=== PATIENT | female | born 1985 | race Caucasian/White ===

== ENCOUNTER 2018-09-09 11:19 | Emergency (ER) | payer SELFPAY ==
[2018-09-09 11:27] VITALS: BP 129/79; PULSE 94; TEMP 98.2; BMI 25.7
--- NOTE | 2018-09-09 11:46 | PDOC ---
History of Present Illness - General Chief Complaint: Injury Stated Complaint: LEFT ANKLE INJURY Time Seen by Provider: 09/09/18 11:26 - History of Present Illness Initial Comments: 09/09/18 13:52 Chief complaint: Pain and swelling left ankle History of present illness: Twisted left ankle yesterday. Pain and swelling. Ambulating but with moderate limp. Review of systems: Denies any other injuries including pain or injuries to the head neck chest abdomen spine and pelvis other extremities, or proximal/distal left lower extremity Past medical history: Healthy female, no active medical or surgical problems Social/family history reviewed and noncontributory Physical exam: Alert and oriented well-developed well-nourished no acute distress cooperative Afebrile, vital signs normal Physical exam is completely normal except for the left ankle, which shows no deformity or instability, but moderate swelling of the lateral ankle ligaments. Point tenderness over the lateral malleolus. No tenderness or swelling of the fifth metatarsal base. Pulses full. No distal sensory or motor deficits. Impression: Grade 2 sprain, rule out fracture Plan: X-rays negative for fracture. Jr wrap and crutches applied. Encouraged early partial weightbearing and follow-up orthopedist in one week if pain and swelling persists. Adequate ambulatory at discharge to follow-up as directed Past History - Past Medical History Allergies/Adverse Reactions: Allergies Allergy/AdvReac Type Severity Reaction Status Date / Time No Known Allergies Allergy Verified 09/09/18 11:22 Home Medications: Ambulatory Orders NK [No Known Home Medication] 09/09/18 COPD: No - Suicide/Smoking/Psychosocial Hx Smoking History: Never smoked Have you smoked in the past 12 months: No Information on smoking cessation initiated: No Hx Alcohol Use: No Drug/Substance Use Hx: No *Physical Exam - Vital Signs Last Vital Signs Temp Pulse Resp BP Pulse Ox 98.2 F 94 H 20 129/79 97 09/09/18 11:21 09/09/18 11:21 09/09/18 11:21 09/09/18 11:21 09/09/18 11:21 *DC/Admit/Observation/Transfer Diagnosis at time of Disposition: Ankle sprain Qualifiers: Encounter type: initial encounter Involved ligament of ankle: tibiofibular ligament Laterality: left Qualified Code(s): S93.432A - Sprain of tibiofibular ligament of left ankle, initial encounter - Discharge Dispostion Disposition: HOME Condition at time of disposition: Stable Decision to Admit order: No - Referrals Referrals: Kvng Her MD [Staff Physician] - 1 week - Patient Instructions Printed Discharge Instructions: DI for Ankle Sprain Additional Instructions: Rest ice elevate Motrin for 1 or 2 days. Then partial weightbearing as tolerated. See airport operations specialist if pain or swelling persists one week. - Post Discharge Activity Forms/Work/School Notes: Back to Work
== END 2018-09-09 13:58 | disposition home or self-care (01) ==
LOC: FER 11:19
DX: S93.432A Sprain of tibiofibular ligament of left ankle, initial encounter (principal); X58.XXXA Exposure to other specified factors, initial encounter; Y93.89 Activity, other specified; Y92.89 Other specified places as the place of occurrence of the external cause
CPT/HCPCS: 73610-TC-LT-FY; 84703; 99282-25

== ENCOUNTER 2019-01-12 14:34 | Emergency (ER) | payer OTHER ==
[2019-01-12 14:39] VITALS: BP 111/65; PULSE 98; TEMP 98; BMI 25.9
--- NOTE | 2019-01-12 15:42 | PDOC ---
History of Present Illness - General Stated Complaint: RT FOOT NUMBNESS Time Seen by Provider: 01/12/19 15:20 - History of Present Illness Initial Comments: 01/12/19 15:51 33-year-old female 11 weeks presents for evaluation of right dropfoot which began last night Past History - Past Medical History Allergies/Adverse Reactions: Allergies Allergy/AdvReac Type Severity Reaction Status Date / Time No Known Allergies Allergy Verified 01/12/19 14:40 Home Medications: Ambulatory Orders NK [No Known Home Medication] 09/09/18 COPD: No - Psycho Social/Smoking Cessation Hx Smoking History: Never smoked Have you smoked in the past 12 months: No Hx Alcohol Use: No Drug/Substance Use Hx: No Review of Systems - Review of Systems Neurological: Yes: See HPI *Physical Exam - Vital Signs Last Vital Signs Temp Pulse Resp BP Pulse Ox 98 F 98 H 18 111/65 100 01/12/19 14:36 01/12/19 14:36 01/12/19 14:36 01/12/19 14:36 01/12/19 14:36 - Physical Exam Comments: 01/12/19 15:51 There is no active dorsiflexion in the right foot sensation is decreased on all sides Medical Decision Making - Medical Decision Making 01/12/19 15:27 Neurology on called phoned 01/12/19 15:50 I have discussed this case with who will see the patient now in his office patient will be discharged to neurology Discharge - Discharge Information Problems reviewed: Yes Clinical Impression/Diagnosis: Foot drop, right Condition: Stable Disposition: HOME - Admission No - Follow up/Referral Referrals: Iqra Palacios MD [Staff Physician] - - Patient Discharge Instructions Additional Instructions: Please go directly to 's office across from the hospital he will see you now. Return to the emergency room for further issues. - Post Discharge Activity
== END 2019-01-12 15:56 | disposition home or self-care (01) ==
LOC: JERFT 14:34
DX: O99.89 Other specified diseases and conditions complicating pregnancy, childbirth and the puerperium (principal); M21.371 Foot drop, right foot; Z3A.11 11 weeks gestation of pregnancy
CPT/HCPCS: 99281-25